=== PATIENT | female | born 1985 | race African-American/Black ===

== ENCOUNTER 2018-11-30 20:48 | Emergency (ER) | payer OTHER ==
[2018-11-30 20:58] VITALS: TEMP 98.3; BMI 31.8
--- NOTE | 2018-11-30 23:49 | PDOC ---
History of Present Illness - General Chief Complaint: Vaginal Bleeding Stated Complaint: 5 WEEKS AND BLEEDING X 3 DAYS Time Seen by Provider: 11/30/18 20:58 - History of Present Illness Initial Comments: This 33-year-old woman, (2 live births, 1 therapeutic , 2 spontaneous miscarriages), with a history of iron deficiency anemia (not treated ) presents with LMP "2 months ago" and vaginal spotting for 2 days. Patient states that she had onset of lower abdominal cramping today. She has not passed clots or tissue, stating that bleeding is "red blood" . No fever/chills/ nausea/vomiting. No recent trauma. No history of ectopic pregnancies Patient states that she was seen by her privacy compliance manager 2 weeks ago(in [place], [place] ,near where she lives); at that time "blood test" revealed that she was 5 weeks Past History - Past Medical History Allergies/Adverse Reactions: Allergies Allergy/AdvReac Type Severity Reaction Status Date / Time Penicillins Allergy Verified 11/30/18 20:52 Home Medications: Ambulatory Orders NK [No Known Home Medication] 11/30/18 COPD: No - Suicide/Smoking/Psychosocial Hx Smoking History: Never smoked Have you smoked in the past 12 months: No Information on smoking cessation initiated: No Hx Alcohol Use: No Drug/Substance Use Hx: No Review of Systems - Review of Systems Able to Perform ROS?: Yes Comments:: 12 point review of systems is negative except for what is noted in the history of present illness *Physical Exam - Vital Signs Last Vital Signs Temp Pulse Resp BP Pulse Ox 98.3 F 85 16 99/51 L 100 11/30/18 22:50 11/30/18 22:50 11/30/18 20:53 11/30/18 22:50 11/30/18 22:50 - Physical Exam Comments: GENERAL: Adult female, alert and oriented 3, in no acute distress HEAD: Normal with no signs of trauma. EYES: PERRLA, EOMI, sclera anicteric, conjunctiva clear. ENT: Ears normal, nares patent, oropharynx clear without exudates. Moist mucous membranes. NECK: Normal range of motion, supple without lymphadenopathy, JVD, or masses. LUNGS: Breath sounds equal, clear to auscultation bilaterally. No wheezes, and no crackles. HEART:Regular rate and rhythm, normal S1 and S2 without murmur, rub or gallop. ABDOMEN:.normal bowel sounds No guarding,tenderness or rebound.No masses No distention. PELVIC:Moderate red blood in vault; no clots or tissue seen; os closed. No masses or tenderness on bimanual EXTREMITIES: Normal range of motion, no edema. No clubbing or cyanosis. No erythema, or tenderness. NEUROLOGICAL: Cranial nerves II through XII grossly intact. Normal speech. No focal neurological deficits. MUSCULOSKELETAL: Back non-tender to palpation, no CVA tenderness SKIN: Warm, Dry, normal turgor, no rashes or lesions noted. Progress Note - Progress Note Progress Note: This 33-year-old woman, 7 weeks (beta hCG level drawn at her privacy compliance manager's office 2 weeks ago apparently indicated 5 weeks gestation) presents with a few day history of vaginal bleeding and one-day history of lower abdominal pain. Exam as noted. Transvaginal ultrasound performed: Preliminary interpretation by Imaging opinion polls survey worker -no IUP seen. Minimal fluid in the cervix, likely representing blood. The right ovary matches 2 cm in length and appears normal. The left ovary measures 2.5 cm in length and contains a 1.5 cm complex cyst. There is no significant free fluid. Differential diagnosis includes early normal , miscarriage and ectopic . The patient is currently comfortable, sleeping while awaiting evaluation results. Repeat vital signs: 125/53, heart rate 76/min Results discussed with the patient. The possibility that she is having a miscarriage is strong, although it is also possible that she is having a normal that is not yet visible in her uterus and also possible that she may have an early ectopic . She is strongly recommended to follow-up with her privacy compliance manager within the next 1-2 days. She states that she has scheduled appointment on December 03. It was recommended that she call her privacy compliance manager in the morning to follow-up sooner than Thursday. She was given work documentation not to return to work until seen by a privacy compliance manager. She should return to an ER immediately if she has increasing pain, severe bleeding, lightheadedness. *DC/Admit/Observation/Transfer Diagnosis at time of Disposition: Threatened - Discharge Dispostion Disposition: HOME Condition at time of disposition: Stable - Referrals - Patient Instructions Printed Discharge Instructions: Threatened Additional Instructions: Follow-up with your privacy compliance manager within the next 48 hours No work until seen by your privacy compliance manager Return to ER if you have severe pain, severe bleeding, lightheadedness - Post Discharge Activity Forms/Work/School Notes: Back to Work
[2018-12-01 02:41] VITALS: BP 125/53; PULSE 76
== END 2018-12-01 03:01 | disposition home or self-care (01) ==
LOC: FER 20:48
DX: O26.91 Pregnancy related conditions, unspecified, first trimester (principal); Z3A.01 Less than 8 weeks gestation of pregnancy; Z88.0 Allergy status to penicillin
CPT/HCPCS: 76801-TC; 99281-25